=== PATIENT | female | born 1970 | race Caucasian/White ===

== ENCOUNTER 2016-11-15 14:05 | Emergency (ER) | payer OTHER ==
[~2016-11-15] VITALS: Ht 170.2 cm; Wt 79.4 kg
[~2016-11-15 14:05] MED LIST: PERCOCET 5-3251 EACH PO
[2016-11-15 14:18] VITALS: BP 144/92
[2016-11-15] MEDS ORDERED: CYCLOBENZAPRINE10 M1 PO (16:06)
[2016-11-15] MEDS ORDERED: MOBIC15 M1 PO (16:06)
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
== END 2016-11-15 16:20 ==
LOC: ERH 14:05
DX: S16.1XXA Strain of muscle, fascia and tendon at neck level, initial encounter (principal); S20.212A Contusion of left front wall of thorax, initial encounter; V89.2XXA Person injured in unspecified motor-vehicle accident, traffic, initial encounter; Y92.488 Other paved roadways as the place of occurrence of the external cause

== ENCOUNTER 2017-02-25 13:32 | Emergency (ER) | payer OTHER ==
[~2017-02-25 13:32] MED LIST changes: +CYCLOBENZAPRINE10 M1 PO; +MOBIC15 M1 PO
[2017-02-25 13:42] VITALS: BP 154/110
--- NOTE | 2017-02-25 14:06 | ED PSYCHIATRIC COMPLAINT ---
History of Present Illness General Chief Complaint: Psychiatric Related Complaint Stated Complaint: BIBA ANXIETY Source: patient, family Exam Limitations: no limitations Vital Signs & Intake/Output Vital Signs & Intake/Output Vital Signs Date Time Temp Pulse Resp B/P B/P Pulse O2 O2 Flow FiO2 Mean Ox Delivery Rate 02/25 1525 Room Air 02/25 1342 97.7 74 20 154/110 100 Room Air Allergies Coded Allergies: NO KNOWN ALLERGIES (07/26/14) Reconcile Medications No Known Home Medications Triage Nurses Notes Reviewed? yes Onset: Abrupt Duration: hour(s): (2-3) Timing: single episode today Severity: mild, moderate Severity Numbers: 5 Associated Symptoms: anxiety LMP (ages 10-50): unknown : No Patient currently breastfeeds: No HPI: 46 year old female with no significant past medical history BIBA for evaluation of possible panic attack. Patient reports that she was at a CPR class earlier today when she suddenly felt feelings of panic, numbness and tingling in her fingertips, nausea, sweats chills, and felt as though her heart was beating hard. She reports she has had similar symptoms in the past. He denies any chest pain shortness of breath abdominal pain vomiting diarrhea back pain hemoptysis lower extremity edema suicidal ideation and homicidal ideation or illicit drug use. Patient reports she currently feels well she does once ensure that there is nothing physically wrong with her. She currently does not take any medications for anxiety. No other associated symptoms. She denies a known triggering event. (AYANNA JAIN PA-C) Past History Travel History Traveled to [place] past 21 day No Medical History Any Pertinent Medical History? see below for history Cardiovascular: hypertension Psychiatric: anxiety Surgical History Surgical History: non-contributory Psychosocial History What is your primary language [place] Family History Hx Contributory? Yes (AYANNA JAIN PA-C) Review of Systems Review of Systems Constitutional: Reports: see HPI. EENTM: Reports: no symptoms. Respiratory: Reports: no symptoms. Cardiovascular: Reports: no symptoms. GI: Reports: no symptoms. Genitourinary: Reports: no symptoms. Musculoskeletal: Reports: no symptoms. Skin: Reports: no symptoms. Neurological/Psychological: Reports: see HPI, anxiety. Hematologic/Endocrine: Reports: no symptoms. Immunologic/Allergic: Reports: no symptoms. All Other Systems: Reviewed and Negative (BLACK PA-C,AYANNA) Physical Exam Physical Exam General Appearance: well developed/nourished, no apparent distress, alert, awake , anxious Head: atraumatic, normal appearance Eyes: Bilateral: normal appearance, PERRL, EOMI. Ears, Nose, Throat: normal pharynx, normal ENT inspection, hearing grossly normal Neck: normal inspection, supple, full range of motion, no midline tenderness Respiratory: normal breath sounds, chest non-tender, no respiratory distress, lungs clear Cardiovascular: regular rate/rhythm, normal peripheral pulses Gastrointestinal: normal bowel sounds, soft, non-tender, no organomegaly Extremities: normal range of motion Neurological/Psychiatric: no motor/sensory deficits, awake, agitated, alert, normal mood/affect, anxious Appearance/Memory/Insight: appropriate appearance, appropriate insight Behavoir/Eye Contact/Speech: cooperative, normal speech, good eye contact Thoughts/Hallucinations: normal thought pattern, no apparent hallucination Skin: intact, normal color, warm/dry SAD PERSONS Done? patient not suicidal (AYANNA JAIN PA-C) Progress Differential Diagnosis: drug intoxication, drug overdose, drug withdrawal, electrolyte abnormality, hypoglycemia, hypothyroidism, arrhythmia, panic attack Plan of Care: Orders Procedure Date/time Status URINE 02/25 1415 Complete URINE DRUG SCREEN FOR ER ONLY 02/25 141 Complete URINALYSIS 02/25 1415 Complete TSH REFLEX 02/25 1415 Complete MAGNESIUM 02/25 1415 Complete COMPREHENSIVE METABOLIC PANEL 02/25 1415 Complete CBC WITHOUT DIFFERENTIAL 02/25 141 Complete EKG 02/25 141 Active Laboratory Tests 02/25/17 1450: Anion Gap 8, Estimated GFR > 60, BUN/Creatinine Ratio 22.9, Glucose 87, Calcium 9.5, Magnesium 2.0, Total Bilirubin 0.6, AST 24, ALT 42, Alkaline Phosphatase 81 , Total Protein 7.1, Albumin 4.2, Globulin 2.9, Albumin/Globulin Ratio 1.4, TSH &T3 &Free T4 Intrp 0.861, CBC w Diff NO MAN DIFF REQ, RBC 4.30, MCV 85.3, MCH 28.9, RDW 13.9, MPV 8.8, Gran % 80.6 H, Lymphocytes % 13.0 L, Monocytes % 5.4, Eosinophils % 0.4, Basophils % 0.6, Absolute Granulocytes 5.4, Absolute Lymphocytes 0.9 L, Absolute Monocytes 0.4, Absolute Eosinophils 0, Absolute Basophils 0, PUBS MCHC 33.8 02/25/17 1423: Urine Opiates Screen < 100.00, Methadone Screen < 40, Barbiturate Screen < 60, Ur Phencyclidine Scrn < 6.00, Amphetamines Screen < 100, U Benzodiazepines Scrn < 85, Urine Cocaine Screen < 50, Urine Cannabis Screen < 5.00, Urine Color YEL, Urine Clarity CLEAR, Urine pH 6.0, Ur Specific [place] 1.015, Urine Protein NEG, Urine Ketones NEG, Urine Nitrite NEG, Urine Bilirubin NEG, Urine Urobilinogen 0.2, Ur Leukocyte Esterase NEG, Ur Microscopic SEDIMENT EXAMINED, Urine RBC 1-3, Urine WBC 1-3 H, Ur Epithelial Cells FEW, Urine Bacteria RARE H, Urine Hemoglobin TRACE-INTACT, Urine Glucose NEG, Urine Test NEGATIVE 2:18 PM: Patient seen and evaluated. Patient is currently asymptomatic and feels well. He is nontoxic appearing. Patient is requesting basic blood work and EKG to ensure that there is a physically wrong with her. She refuses a ED crisis consult. She is not suicidal or homicidal. She denies any illicit drug use. Basic labs and EKG ordered will follow up on results. 3:40 PM: Blood work is back other than TSH and is within normal limits. EKG shows normal sinus rhythm without any ST or T-wave changes. Patient is feeling well currently and is nontoxic appearing. She is asking to go home and she will follow-up with her primary care doctor this week. Discussed all results with the patient and she is agreeable to the plan. (AYANNA JAIN PA-C) Initial ED EKG: normal axis, normal intervals, normal p-waves, normal QRS complex, normal sinus rhythm (AYANNA JAIN PA-C) Departure Departure Disposition: HOME OR SELF CARE Condition: Stable Clinical Impression Primary Impression: Panic attack Referrals: MARIKA VASQUEZ,OLIVER Elder (PCP/Family) Additional Instructions: Rest and drink plenty of fluids. Avoid caffeine. Make a follow-up appointment with her primary care doctor this week. Return to the emergency department with any concerns. Departure Forms: Customer Survey General Discharge Information Prescriptions: Current Visit Scripts No Known Home Medications (AYANNA JAIN PA-C) PA/DOUBLE NEEDLE STITCHER Co-Sign Statement Statement: ED Attending supervision documentation- [] I saw and evaluated the patient. I have also reviewed all the pertinent lab results and diagnostic results. I agree with the findings and the plan of care as documented in the PA's/DOUBLE NEEDLE STITCHER's documentation. [x] I have reviewed the ED Record and agree with the PA's/DOUBLE NEEDLE STITCHER's documentation. [] Additions or exceptions (if any) to the PAs/DOUBLE NEEDLE STITCHER's note and plan are summarized below: [] (CATERINA LAST DO)
[2017-02-25 15:09] LABS: ABSOLUTE BASOPHIL COUNT 0 /CUMM (0.0-0.2); ABSOLUTE EOSINOPHIL COUNT 0 /CUMM (0.0-0.7); ABSOLUTE GRANULOCYTE CT 5.4 /CUMM (1.4-6.5); ABSOLUTE LYMPH COUNT 0.9 /CUMM (1.2-3.4); ABSOLUTE MONOCYTE COUNT 0.4 /CUMM (0.10-0.60); BASOPHIL % 0.6 % (0.0-2.0); EOSINOPHIL % 0.4 % (0-5); GRANULOCYTE % 80.6 % (42.2-75.2); HEMATOCRIT 36.7 % (37-47); MEAN CORPUSCULAR HGB 28.9 PG (27.0-31.0); MEAN CORPUSCULAR HGB CONC 33.8 G/DL (33.0-37.0); MEAN CORPUSCULAR VOLUME 85.3 FL (81.0-99.0); MEAN PLATELET VOLUME 8.8 FL (7.4-10.4); PLATELET COUNT 272 /CUMM (130-400); RBC DISTRIBUTION WIDTH 13.9 % (11.5-14.5); WHITE BLOOD CELL COUNT 6.7 /CUMM (4.8-10.8)
== END 2017-02-25 15:49 ==
LOC: ERH 13:32
PROVIDERS: Physician Assistant Medical
DX: F41.0 Panic disorder [episodic paroxysmal anxiety] (principal)
CPT/HCPCS: 80307; 81001; 81025; 93005; 93010